=== PATIENT | male | born 1965 | race African-American/Black ===

== ENCOUNTER 2017-12-30 17:09 | Emergency (ER) | payer OTHER ==
[2017-12-30 17:14] VITALS: BP 133/84; PULSE 84; TEMP 98.3; BMI 44.2
--- NOTE | 2017-12-30 17:18 | PDOC ---
Rapid Medical Evaluation Chief Complaint: Injury Time Seen by Provider: 12/30/17 17:15 Medical Evaluation: Allergies Allergy/AdvReac Type Severity Reaction Status Date / Time No Known Allergies Allergy Verified 12/30/17 17:11 Vital Signs Temp Pulse Resp BP Pulse Ox 98.3 F 84 18 133/84 100 12/30/17 17:12 12/30/17 17:12 12/30/17 17:12 12/30/17 17:12 12/30/17 17:12 12/30/17 17:17 Pt c/o: injury to rt foot 2 weeks ago, had xray 2 weeks ago but pain continues Pt on brief exam: no deformity, noted large bunion, ttp and base of 2nd and 3rd toe Pt ordered for: xray Pt to proceed to the ED Discharge Disposition - Diagnosis Foot pain, right - Referrals - Patient Instructions - Post Discharge Activity
--- NOTE | 2017-12-30 17:59 | PDOC ---
History of Present Illness - General Chief Complaint: Injury Stated Complaint: INJURY Time Seen by Provider: 12/30/17 17:15 History Source: Patient Exam Limitations: No Limitations - History of Present Illness Initial Comments: CHIEF COMPLAINT: 52 y/o male c/o right foot pain x 2 weeks. HISTORY OF PRESENT ILLNESS: Patient states he stepped in a manhole 2 weeks ago on vacation. He is walking on the right foot and icing it but it hurts. He denies numbness/tingling. He hasn't taken any medication for pain. Vital signs on arrival are within normal limits. REVIEW OF SYSTEMS: GENERAL/CONSTITUTIONAL: No fever/chills. No weakness. No weight change. MUSCULOSKELETAL: +right foot pain. No neck or back pain. SKIN: No rash or easy bruising. NEUROLOGIC: No headache, vertigo, loss of consciousness, or loss of sensation. PHYSICAL EXAM: VITAL_SIGNS: within normal limits GENERAL_APPEARANCE: alert, cooperative, obvious discomfort. Patient is ambulatory. MENTAL_STATUS: speech clear, oriented X 3, responds appropriately to questions. NEURO: motor intact and sensory intact in injured extremity. EXTREMITIES: good pulse in injured extremity. Large bunion to right 1st toe. Pain with palpation of 2nd and 3rd metatarsal bones without crepitus. Affected area has mild swelling. No erythema, warmth or streaking. Full ROM of right foot. SKIN: warm, dry, good color. Past History - Past Medical History Allergies/Adverse Reactions: Allergies Allergy/AdvReac Type Severity Reaction Status Date / Time No Known Allergies Allergy Verified 12/30/17 17:11 Home Medications: Ambulatory Orders NK [No Known Home Medication] 12/30/17 Anemia: No Asthma: Yes (NO RECENT ATTACK) Cancer: No Cardiac Disorders: No CVA: No COPD: No CHF: No DVT: No Dementia: No Diabetes: No GI Disorders: No Disorders: No HTN: No Hypercholesterolemia: No Liver Disease: No Seizures: No Thyroid Disease: No - Surgical History Abdominal Surgery: No Appendectomy: No Cardiac Surgery: No Cholecystectomy: No Lung Surgery: No Neurologic Surgery: No Orthopedic Surgery: No - Suicide/Smoking/Psychosocial Hx Smoking History: Never smoked Have you smoked in the past 12 months: No Information on smoking cessation initiated: No Hx Alcohol Use: No Drug/Substance Use Hx: No Substance Use Type: None Hx Substance Use Treatment: No *Physical Exam - Vital Signs Last Vital Signs Temp Pulse Resp BP Pulse Ox 98.3 F 84 18 133/84 100 12/30/17 17:12 12/30/17 17:12 12/30/17 17:12 12/30/17 17:12 12/30/17 17:12 Medical Decision Making - Medical Decision Making A/P: 52 y/o male with right foot injury 2 weeks ago. Plan is as follows: 1. xray right foot xray right foot IMPRESSION: no acute pathology. Wrapped patient's foot in SANTI bandage. Suggested ice and Motrin at home and f/ u with Dr. Blackmon if no improvement in another week. The patient verbalizes understanding of all instructions, has no further questions and is awaiting discharge. *DC/Admit/Observation/Transfer Diagnosis at time of Disposition: Foot pain, right - Discharge Dispostion Disposition: HOME Condition at time of disposition: Good - Referrals Referrals: Lam Blackmon MD [Staff Physician] - 1 week - Patient Instructions Printed Discharge Instructions: How To Perform RICE (Rest, Ice, Compress, Elevate), DI for Foot Pain Additional Instructions: Discharge Instructions: -The xray of your foot was negative -Please use an SANTI bandage for comfort -Take 600mg of over the counter Ibuprofen with food for pain every 6 hours -Follow up with Dr. Blackmon in 2 weeks if no improvement -Return to the ER with any worsening or concerning symptoms - Post Discharge Activity Forms/Work/School Notes: Back to Work
== END 2017-12-30 18:12 | disposition home or self-care (01) ==
LOC: JERFT 17:09
DX: S99.821A Other specified injuries of right foot, initial encounter (principal); X50.1XXA Overexertion from prolonged static or awkward postures, initial encounter; Y93.01 Activity, walking, marching and hiking; Y92.89 Other specified places as the place of occurrence of the external cause; Y99.8 Other external cause status
CPT/HCPCS: 73630-TC-RT-FY; 99281-25

== ENCOUNTER 2021-10-17 15:18 | Inpatient (IN) | payer OTHER ==
[2021-10-17] MEDS ORDERED: SODIUM CHLORIDE 3,198 ML IV ONE (16:26)
[2021-10-17] MEDS ORDERED: ACETAMINOPHEN 1000 MG/100 ML BAG IVPB ONE (16:27)
[2021-10-17] MEDS ORDERED: PIPERACILLIN/TAZOB 4.5 GM 4.5 GM in DEXTROSE 5%-WATER 100 ML IVPB ONE (16:32)
[2021-10-17] MEDS ORDERED: VANCOMYCIN 1 GM in D5W (PRE-DOCKED) 1,000 MG/250 ML IVPB ONE (16:32)
[2021-10-17] MEDS ORDERED: PIPERACILLIN/TAZOB 4.5 GM 4.5 GM/100 ML BAG IVPB ONE (16:49)
[2021-10-17] MEDS ORDERED: ACETAMINOPHEN INJECTION 100 ML IVPB ONE (16:49)
[2021-10-17 17:27] LABS: BASO % 0.5 % (0-2.0); EOS % 0.1 % (0-4.5); HEMATOCRIT 45.9 % (35.4-49); HEMOGLOBIN 15.3 GM/dL (11.7-16.9); LYMPH % 7.9 % (8-40); MCH 27.4 pg (25.7-33.7); MCHC 33.5 g/dl (32.0-35.9); MEAN CELL VOLUME 81.9 fl (80-96); MEAN PLT VOLUME 7.6 fl (7.5-11.1); NEUT % 88.5 % (42.8-82.8); PLATELET COUNT 225 10^3/uL (134-434); RDW 13.4 % (11.9-15.9); WHITE BLOOD COUNT 7.3 K/mm3 (4.0-10.0)
[2021-10-17 17:34] LABS: INR 1.28 (0.83-1.09); PROTHROMBIN TIME (PATIENT) 14.7 SEC (9.7-13.0)
[2021-10-17 17:37] LABS: ACTIVATED PTT 30.6 SECONDS (25.2-36.5)
[2021-10-17 17:46] LABS: CHLORIDE 99 mmol/L (98-107); SODIUM 134 mmol/L (136-145)
[2021-10-17 17:48] LABS: CALCIUM 9.1 mg/dL (8.5-10.1)
[2021-10-17 17:49] LABS: ALBUMIN 3.8 g/dl (3.4-5.0); ANION GAP 10 MMOL/L (8-16); BLOOD UREA NITROGEN 13.6 mg/dL (7-18); CO2 25 mmol/L (21-32); GLUCOSE,RANDOM 96 mg/dL (74-106)
[2021-10-17 17:52] LABS: CREATININE 1.2 mg/dL (0.55-1.3); SGOT/AST 30 U/L (15-37); SGPT/ALT 34 U/L (13-61)
[2021-10-17 17:53] LABS: BILIRUBIN,TOTAL 0.8 mg/dL (0.2-1)
[2021-10-17 17:54] LABS: TOT PROT 7.8 g/dl (6.4-8.2)
[2021-10-17 17:55] LABS: ALK PHOS 124 U/L (45-117)
[2021-10-17 18:13] LABS: EPI CELLS 31 /uL (0-25.1); HYALINE CASTS 10 /uL (0-3.1); PH,URINE 8.5 (5.0-8.0); URINE APPEARANCE CLEAR; URINE BACTERIA 62 /uL (0-1359); URINE BILIRUBIN NEGATIVE (NEGATIVE); URINE COLOR DK YELLOW; URINE GLUCOSE (UA) NEGATIVE (NEGATIVE); URINE KETONE 1+ (NEGATIVE); URINE LEUK ESTERASE 2+ (NEGATIVE); URINE NITRITE NEGATIVE (NEGATIVE); URINE PROTEIN 2+ (NEGATIVE); URINE RBC 551 /uL (0-23.9); URINE WBC 352 /uL (0-25.8)
[2021-10-17 18:53] LABS: VENOUS BASE EXCESS 0.1 mmol/L (-2-2); VENOUS O2 SATURATION 57.4 % (70-80); VENOUS PCO2 40.3 mmHg (38-52); VENOUS PH 7.406 (7.310-7.410)
[2021-10-17] MEDS ORDERED: ACETAMINOPHEN 325 MG TABLET (FP) PO PRN (20:59)
[2021-10-17] MEDS ORDERED: ALBUTEROL SO4 HFA INHALER IH PRN (21:42)
[2021-10-17] MEDS ORDERED: MELATONIN 5 MG TABLETS PO ONE (22:51)
[2021-10-17] MEDS: ATORVASTATIN CA 20 MG TABLET (FP) PO SCH (23:00)
[2021-10-17] MEDS: SODIUM CHLORIDE 1,000 ML IV SCH (23:00)
[2021-10-17] MEDS ORDERED: ATORVASTATIN CA 20 MG TABLET (FP) ONE (23:00)
[2021-10-18] MEDS ORDERED: PIPERACILLIN/TAZOB 3.375 GM 3.375 GM/50 ML BAG IVPB ONE (02:54)
[2021-10-18] MEDS: PIPERACILLIN/TAZOB 3.375 GM 3.375 GM in DEXTROSE 5%-WATER - 50 ML IVPB SCH ×3 (03:00→17:19)
[2021-10-18] MEDS: BUDESONIDE/FORMETEROL FUMARATE 80/4.5 mcg INHALER IH SCH ×3 (03:00→21:15)
[2021-10-18] MEDS ORDERED: ACETAMINOPHEN 325 MG TABLET (FP) ONE (04:11)
[2021-10-18] MEDS: SODIUM CHLORIDE 1,000 ML IV SCH ×3 (08:52→21:15)
[2021-10-18] MEDS ORDERED: ACETAMINOPHEN 1000 MG/100 ML BAG IVPB PRN ×2 (09:18→14:03)
[2021-10-18] MEDS ORDERED: DEXTROSE 5%-WATER - 50 ML IVPB ONE (09:35)
[2021-10-18] MEDS ORDERED: PIPERACILLIN/TAZOBACTAM 3.375 GM VIAL IVPB ONE ×2 (09:35→17:14)
[2021-10-18] MEDS: ENOXAPARIN NA (PORCINE) 40 MG/0.4 ML DISP.SYRIN SQ SCH (09:43)
[2021-10-18 12:54] LABS: BASO % 0.4 % (0-2.0); HEMATOCRIT 39.6 % (35.4-49); HEMOGLOBIN 13.5 GM/dL (11.7-16.9); LYMPH % 10.2 % (8-40); MCHC 34.2 g/dl (32.0-35.9); MEAN PLT VOLUME 7.5 fl (7.5-11.1); NEUT % 81.4 % (42.8-82.8); PLATELET COUNT 195 10^3/uL (134-434); RBC 4.83 M/mm3 (4.00-5.60); RDW 13.8 % (11.9-15.9); WHITE BLOOD COUNT 9.9 K/mm3 (4.0-10.0)
[2021-10-18 13:12] LABS: BLOOD UREA NITROGEN 11.3 mg/dL (7-18); CALCIUM 8.9 mg/dL (8.5-10.1); MAGNESIUM 2.2 mg/dL (1.8-2.4)
[2021-10-18 13:15] LABS: PHOSPHOROUS 3.4 mg/dL (2.5-4.9)
[2021-10-18 13:17] LABS: BILIRUBIN,TOTAL 0.8 mg/dL (0.2-1); TOT PROT 6.2 g/dl (6.4-8.2)
[2021-10-18 18:07] LABS: SARS-CoV-2 NAA Not Detected (Not Detected)
[2021-10-18] MEDS ORDERED: IBUPROFEN 400 MG TABLET (FP) PO ONE (19:53)
[2021-10-18] MEDS ORDERED: VANCOMYCIN 1 GM/200 ML PREMIX BAG IVPB SCH (20:00)
[2021-10-18] MEDS: ATORVASTATIN CA 20 MG TABLET (FP) PO SCH (21:15)
[2021-10-19] MEDS ORDERED: PIPERACILLIN/TAZOBACTAM 3.375 GM VIAL IVPB ONE ×3 (01:04→16:57)
[2021-10-19] MEDS ORDERED: DEXTROSE 5%-WATER - 50 ML IVPB ONE ×3 (01:04→16:57)
[2021-10-19] MEDS: PIPERACILLIN/TAZOB 3.375 GM 3.375 GM in DEXTROSE 5%-WATER - 50 ML IVPB SCH ×3 (01:09→17:39)
[2021-10-19] MEDS ORDERED: ACETAMINOPHEN PO PRN (02:09)
[2021-10-19] MEDS ORDERED: ASPIRIN PO PRN (02:09)
[2021-10-19] MEDS ORDERED: [UNRECOGNIZED DRUG - OTHER] PO PRN (02:09)
[2021-10-19] MEDS ORDERED: CAFFEINE PO PRN (02:09)
[2021-10-19] MEDS ORDERED: ACETAMINOPHEN/CAFFEINE/BUTALBITAL 1 TAB PO ONE (02:12)
[2021-10-19] MEDS: BUDESONIDE/FORMETEROL FUMARATE 80/4.5 mcg INHALER IH SCH ×2 (09:32→21:48)
[2021-10-19] MEDS: ENOXAPARIN NA (PORCINE) 40 MG/0.4 ML DISP.SYRIN SQ SCH (09:32)
[2021-10-19 10:22] LABS: HEMATOCRIT 41.4 % (35.4-49); HEMOGLOBIN 13.6 GM/dL (11.7-16.9); MCH 27.1 pg (25.7-33.7); MCHC 32.8 g/dl (32.0-35.9); MEAN CELL VOLUME 82.7 fl (80-96); MEAN PLT VOLUME 7.6 fl (7.5-11.1); PLATELET COUNT 213 10^3/uL (134-434); RBC 5.01 M/mm3 (4.00-5.60); RDW 13.6 % (11.9-15.9)
[2021-10-19 10:44] LABS: CALCIUM 8.8 mg/dL (8.5-10.1)
[2021-10-19 10:45] LABS: ALBUMIN 2.8 g/dl (3.4-5.0); BLOOD UREA NITROGEN 12.1 mg/dL (7-18); MAGNESIUM 2.3 mg/dL (1.8-2.4)
[2021-10-19 10:48] LABS: CREATININE 0.8 mg/dL (0.55-1.3); PHOSPHOROUS 2.4 mg/dL (2.5-4.9)
[2021-10-19 10:49] VITALS: BMI 34.7
[2021-10-19 10:49] LABS: TOT PROT 6.2 g/dl (6.4-8.2)
[2021-10-19 10:50] LABS: BILIRUBIN,TOTAL 0.6 mg/dL (0.2-1)
[2021-10-19 11:58] LABS: ANISOCYTOSIS 0; MACROCYTOSIS 0
[2021-10-19] MEDS: SODIUM CHLORIDE 1,000 ML IV SCH ×2 (18:05→23:25)
[2021-10-19] MEDS: FLUTICASONE PROP 0.05% 16 GM NASAL SPRAY NS SCH ×2 (19:14→21:48)
[2021-10-19] MEDS ORDERED: CELECOXIB 100 MG CAPSULE PO ONE ×2 (20:45→22:07)
[2021-10-19] MEDS ORDERED: IBUPROFEN 400 MG TABLET (FP) PO PRN (21:06)
[2021-10-19] MEDS: ATORVASTATIN CA 20 MG TABLET (FP) PO SCH (21:48)
[2021-10-20] MEDS ORDERED: DEXTROSE 5%-WATER - 50 ML IVPB ONE ×3 (01:32→16:39)
[2021-10-20] MEDS ORDERED: PIPERACILLIN/TAZOBACTAM 3.375 GM VIAL IVPB ONE ×3 (01:32→16:39)
[2021-10-20] MEDS: LACTATED RINGERS SOLUTION 1,000 ML/1,000 ML INFUS.BAG IV SCH ×3 (02:18→18:37)
[2021-10-20] MEDS: PIPERACILLIN/TAZOB 3.375 GM 3.375 GM in DEXTROSE 5%-WATER - 50 ML IVPB SCH ×3 (02:18→17:01)
[2021-10-20] MEDS: oxyCODONE HCL 5 MG TABLET PO PRN ×2 (05:33→21:03)
[2021-10-20] MEDS: FLUTICASONE PROP 0.05% 16 GM NASAL SPRAY NS SCH ×2 (09:10→20:59)
[2021-10-20] MEDS: BUDESONIDE/FORMETEROL FUMARATE 80/4.5 mcg INHALER IH SCH ×2 (09:10→20:59)
[2021-10-20] MEDS: ENOXAPARIN NA (PORCINE) 40 MG/0.4 ML DISP.SYRIN SQ SCH (09:10)
[2021-10-20] MEDS ORDERED: NAPH,MB-DB/K PH,MBDB POWDER PACKET PO ONE (16:17)
[2021-10-20] MEDS ORDERED: ACETAMINOPHEN 500 MG TABLET (FP) PO PRN (18:28)
[2021-10-20] MEDS ORDERED: TIZANIDINE HCL 2 MG TABLET PO PRN (18:29)
[2021-10-20] MEDS: ATORVASTATIN CA 20 MG TABLET (FP) PO SCH (20:59)
[2021-10-21] MEDS ORDERED: DEXTROSE 5%-WATER - 50 ML IVPB ONE ×2 (00:41→10:57)
[2021-10-21] MEDS ORDERED: PIPERACILLIN/TAZOBACTAM 3.375 GM VIAL IVPB ONE (00:41)
[2021-10-21] MEDS: LACTATED RINGERS SOLUTION 1,000 ML/1,000 ML INFUS.BAG IV SCH (01:00)
[2021-10-21] MEDS: PIPERACILLIN/TAZOB 3.375 GM 3.375 GM in DEXTROSE 5%-WATER - 50 ML IVPB SCH ×2 (01:11→10:34)
[2021-10-21 09:03] LABS: BASO % 0.8 % (0-2.0); EOS % 1.4 % (0-4.5); HEMATOCRIT 39.3 % (35.4-49); HEMOGLOBIN 13.4 GM/dL (11.7-16.9); LYMPH % 27.6 % (8-40); MCH 27.5 pg (25.7-33.7); MEAN CELL VOLUME 80.7 fl (80-96); MEAN PLT VOLUME 7.5 fl (7.5-11.1); NEUT % 57.2 % (42.8-82.8); PLATELET COUNT 296 10^3/uL (134-434); RBC 4.87 M/mm3 (4.00-5.60); RDW 13.7 % (11.9-15.9); WHITE BLOOD COUNT 6.8 K/mm3 (4.0-10.0)
[2021-10-21 09:27] LABS: ALBUMIN 2.6 g/dl (3.4-5.0); BLOOD UREA NITROGEN 10.6 mg/dL (7-18); CREATININE 0.7 mg/dL (0.55-1.3)
[2021-10-21 09:28] LABS: BILIRUBIN,TOTAL 0.5 mg/dL (0.2-1); CALCIUM 8.8 mg/dL (8.5-10.1)
[2021-10-21] MEDS: BUDESONIDE/FORMETEROL FUMARATE 80/4.5 mcg INHALER IH SCH ×2 (10:51→21:30)
[2021-10-21] MEDS: oxyCODONE HCL 5 MG TABLET PO PRN (10:51)
[2021-10-21] MEDS: FLUTICASONE PROP 0.05% 16 GM NASAL SPRAY NS SCH ×2 (10:51→21:30)
[2021-10-21] MEDS: ENOXAPARIN NA (PORCINE) 40 MG/0.4 ML DISP.SYRIN SQ SCH (10:51)
[2021-10-21] MEDS ORDERED: cefTRIAXone SODIUM 1 GM VIAL ONE (10:57)
[2021-10-21] MEDS: CEFTRIAXONE 1 GM in DEXTROSE 5%-WATER - 50 ML IVPB SCH (11:03)
[2021-10-21] MEDS: TAMSULOSIN HCL 0.4 MG CAP PO SCH (12:44)
[2021-10-21] MEDS: FINASTERIDE 5 MG TABLET (FP) PO SCH (12:45)
[2021-10-21] MEDS ORDERED: IBUPROFEN 400 MG TABLET (FP) PO ONE (18:58)
[2021-10-21] MEDS: ATORVASTATIN CA 20 MG TABLET (FP) PO SCH (21:29)
[2021-10-22 08:53] LABS: EOS % 1.3 % (0-4.5); HEMATOCRIT 40.8 % (35.4-49); HEMOGLOBIN 13.9 GM/dL (11.7-16.9); LYMPH % 33.3 % (8-40); MCH 27.9 pg (25.7-33.7); MONO % 7.8 % (3.8-10.2); NEUT % 56.6 % (42.8-82.8); PLATELET COUNT 345 10^3/uL (134-434); RBC 4.97 M/mm3 (4.00-5.60); WHITE BLOOD COUNT 7.1 K/mm3 (4.0-10.0)
[2021-10-22 09:13] LABS: BLOOD UREA NITROGEN 17.8 mg/dL (7-18)
[2021-10-22 09:16] LABS: CREATININE 0.8 mg/dL (0.55-1.3)
[2021-10-22 09:18] LABS: BILIRUBIN,TOTAL 0.6 mg/dL (0.2-1); TOT PROT 6.7 g/dl (6.4-8.2)
[2021-10-22] MEDS ORDERED: cefTRIAXone SODIUM 1 GM VIAL ONE (09:29)
[2021-10-22] MEDS ORDERED: DEXTROSE 5%-WATER - 50 ML IVPB ONE (09:30)
[2021-10-22] MEDS: FLUTICASONE PROP 0.05% 16 GM NASAL SPRAY NS SCH ×2 (09:44→22:05)
[2021-10-22] MEDS: ENOXAPARIN NA (PORCINE) 40 MG/0.4 ML DISP.SYRIN SQ SCH (09:45)
[2021-10-22] MEDS: FINASTERIDE 5 MG TABLET (FP) PO SCH (09:45)
[2021-10-22] MEDS: BUDESONIDE/FORMETEROL FUMARATE 80/4.5 mcg INHALER IH SCH ×2 (09:47→22:05)
[2021-10-22] MEDS: CEFTRIAXONE 1 GM in DEXTROSE 5%-WATER - 50 ML IVPB SCH (09:47)
[2021-10-22] MEDS: TAMSULOSIN HCL 0.4 MG CAP PO SCH (09:49)
[2021-10-22] MEDS: ATORVASTATIN CA 20 MG TABLET (FP) PO SCH (22:05)
[2021-10-23] MEDS: TAMSULOSIN HCL 0.4 MG CAP PO SCH (09:21)
[2021-10-23] MEDS: FINASTERIDE 5 MG TABLET (FP) PO SCH (09:21)
[2021-10-23] MEDS: ENOXAPARIN NA (PORCINE) 40 MG/0.4 ML DISP.SYRIN SQ SCH (09:21)
[2021-10-23] MEDS: FLUTICASONE PROP 0.05% 16 GM NASAL SPRAY NS SCH (09:22)
[2021-10-23] MEDS ORDERED: DEXTROSE 5%-WATER - 50 ML IVPB ONE (09:25)
[2021-10-23] MEDS ORDERED: cefTRIAXone SODIUM 1 GM VIAL ONE (09:25)
[2021-10-23] MEDS: CEFTRIAXONE 1 GM in DEXTROSE 5%-WATER - 50 ML IVPB SCH (09:27)
[2021-10-23] MEDS: BUDESONIDE/FORMETEROL FUMARATE 80/4.5 mcg INHALER IH SCH (09:27)
[2021-10-23 12:03] VITALS: TEMP 98
[2021-10-23 12:28] LABS: HEMATOCRIT 40.2 % (35.4-49); HEMOGLOBIN 13.5 GM/dL (11.7-16.9); MCH 27.6 pg (25.7-33.7); MCHC 33.6 g/dl (32.0-35.9); MEAN PLT VOLUME 6.9 fl (7.5-11.1); PLATELET COUNT 379 10^3/uL (134-434); RDW 13.8 % (11.9-15.9); WHITE BLOOD COUNT 10.2 K/mm3 (4.0-10.0)
[2021-10-23 12:48] LABS: ALBUMIN 3.1 g/dl (3.4-5.0); BLOOD UREA NITROGEN 17.7 mg/dL (7-18)
[2021-10-23 12:51] LABS: CREATININE 0.7 mg/dL (0.55-1.3)
[2021-10-23 12:52] LABS: BILIRUBIN,TOTAL 0.8 mg/dL (0.2-1)
[2021-10-23 14:11] VITALS: BP 107/53; PULSE 85
== END 2021-10-23 16:00 | disposition home or self-care (01) | DRG 862 ==
LOC: JER 15:18 → JERBED 16:31 → J6S 10-18 07:47
PROVIDERS: ADMIT Internal Medicine; ATTEND Internal Medicine
PROC: 009U3ZX Drainage of Spinal Canal, Percutaneous Approach, Diagnostic (ICD-10-PCS; principal; 2021-10-19)
DX: T81.44XA Sepsis following a procedure, initial encounter (principal); A41.50 Gram-negative sepsis, unspecified; N39.0 Urinary tract infection, site not specified; Y83.9 Surgical procedure, unspecified as the cause of abnormal reaction of the patient, or of later complication, without mention of misadventure at the time of the procedure; R33.9 Retention of urine, unspecified; E78.5 Hyperlipidemia, unspecified; J45.909 Unspecified asthma, uncomplicated; B96.20 Unspecified Escherichia coli [E. coli] as the cause of diseases classified elsewhere; N40.1 Benign prostatic hyperplasia with lower urinary tract symptoms; E66.9 Obesity, unspecified; Z68.34 Body mass index [BMI] 34.0-34.9, adult
CPT/HCPCS: 36415; 70450-TC; 71045-TC-FY; 76705-TC; 80053; 81003; 82272; 82553; 82803; 83605; 83735; 84100; 84484; 85025; 85027; 85610; 85730; 86850; 86900; 86901; 87040; 87086; 87186; 93005; 93010; 93306-TC; 99285-25; C9803-CS; U0003; U0005

== ENCOUNTER 2023-04-08 07:28 | Emergency (ER) | payer OTHER ==
[2023-04-08 07:38] VITALS: BMI 34.0
[2023-04-08] MEDS ORDERED: SODIUM CHLORIDE 0.9% 500 ML INFUS.BAG IV ONE (08:27)
[2023-04-08] MEDS ORDERED: KETOROLAC TROMETHAMINE 15 MG/ML VIAL IVPUSH ONE (08:28)
[2023-04-08] MEDS ORDERED: ACETAMINOPHEN 500 MG TABLET (FP) PO ONE (08:28)
[2023-04-08] MEDS ORDERED: KETOROLAC TROMETHAMINE 15 MG/ML VIAL ONE (08:40)
[2023-04-08] MEDS ORDERED: ACETAMINOPHEN 500 MG TABLET (FP) ONE (08:43)
[2023-04-08 09:17] LABS: BASO % 0.2 % (0-2.0); HEMATOCRIT 42.7 % (35.4-49); HEMOGLOBIN 14.4 GM/dL (11.7-16.9); LYMPH % 6.8 % (8-40); MCH 27.6 pg (25.7-33.7); MCHC 33.8 g/dl (32.0-35.9); MEAN CELL VOLUME 81.6 fl (80-96); MONO % 5.9 % (3.8-10.2); NEUT % 87.1 % (42.8-82.8); PLATELET COUNT 189 10^3/uL (134-434); RBC 5.23 M/mm3 (4.00-5.60); RDW 14.6 % (11.9-15.9); WHITE BLOOD COUNT 14.5 K/mm3 (4.0-10.0)
[2023-04-08 09:31] LABS: EPI CELLS 22 /uL (0-25.1); HYALINE CASTS 2 /uL (0-3.1); URINE APPEARANCE CLEAR; URINE BACTERIA 3 /uL (0-1359); URINE BILIRUBIN NEGATIVE (NEGATIVE); URINE COLOR YELLOW; URINE GLUCOSE (UA) NEGATIVE (NEGATIVE); URINE KETONE 1+ (NEGATIVE); URINE LEUK ESTERASE NEGATIVE (NEGATIVE); URINE NITRITE NEGATIVE (NEGATIVE); URINE PROTEIN 1+ (NEGATIVE); URINE RBC 290 /uL (0-23.9); URINE WBC 13 /uL (0-25.8)
[2023-04-08 09:48] LABS: CALCIUM 8.4 mg/dL (8.5-10.1); POTASSIUM 3.5 mmol/L (3.5-5.1)
[2023-04-08 09:49] LABS: ALBUMIN 3.9 g/dl (3.4-5.0); BLOOD UREA NITROGEN 13.1 mg/dL (7-18)
[2023-04-08 09:54] LABS: CREATININE 1.1 mg/dL (0.55-1.3)
[2023-04-08 09:55] LABS: BILIRUBIN,TOTAL 0.4 mg/dL (0.2-1); TOT PROT 7.5 g/dl (6.4-8.2)
[2023-04-08 10:09] LABS: THROAT:GRP A STREP NOT DETECTED (NOTDETECTED)
[2023-04-08 10:16] VITALS: BP 93/60; PULSE 85; RESP 20; TEMP 98.9
== END 2023-04-08 10:59 | disposition home or self-care (01) ==
LOC: JERFT 07:28 → JER 07:28 → JERFT 10:59
PROC: 3E0333Z Introduction of Anti-inflammatory into Peripheral Vein, Percutaneous Approach (ICD-10-PCS; principal; 2023-04-08)
DX: R11.10 Vomiting, unspecified (principal); R35.0 Frequency of micturition; R09.81 Nasal congestion; J02.9 Acute pharyngitis, unspecified; R05.9 Cough, unspecified; R51.9 Headache, unspecified; R07.89 Other chest pain; M79.10 Myalgia, unspecified site; R50.9 Fever, unspecified; U07.1 COVID-19
CPT/HCPCS: 0241U-QW; 36415; 71046-TC-FY; 80053; 81003; 85025; 87086; 87651; 99284-25